=== PATIENT | female | born 1985 ===

== ENCOUNTER → 2021-10-20 | Outpatient (CLI) | payer SELFPAY ==
[2021-10-23 01:08] LABS: CHLAMYDIA TRACHOMATIS, NAA Negative (Negative)
== END | disposition home or self-care (01) ==
LOC: LAB SHORT 16:42
PROVIDERS: Physician Assistant
DX: R10.2 Pelvic and perineal pain (principal)
CPT/HCPCS: 87070; 87205; 87491; 87591; 88175